=== PATIENT | male | born 1960 | race American Indian/Alaskan Native ===

== ENCOUNTER 2024-05-18 10:40 | Emergency (ER) | payer OTHER ==
[2024-05-18 11:09] VITALS: BP 132/77; PULSE 90; RESP 18; TEMP 97.1; BMI 23.7
[2024-05-18] MEDS ORDERED: ACETAMINOPHEN 325 MG TABLET (FP) ONE (12:51)
[2024-05-18] MEDS: ACETAMINOPHEN 500 MG TABLET (FP) PO ONE (12:57)
== END 2024-05-18 14:43 | disposition home or self-care (01) ==
LOC: JER 10:40
DX: R07.89 Other chest pain (principal); R51.9 Headache, unspecified; W01.198A Fall on same level from slipping, tripping and stumbling with subsequent striking against other object, initial encounter
CPT/HCPCS: 71046-TC-FY; 99283-25